=== PATIENT | female | born 1955 | race Caucasian/White ===

== ENCOUNTER 2018-08-28 13:12 | Observation (INO) | payer OTHER ==
[2018-08-28] MEDS ORDERED: SODIUM CHLORIDE 1,000 ML IV STA (14:45)
[2018-08-28] MEDS ORDERED: SODIUM CHLORIDE 500 ML IV STA (14:46)
[2018-08-28] MEDS ORDERED: ACETAMINOPHEN 325 MG TABLET (FP) PO ONE (16:15)
[2018-08-28] MEDS ORDERED: ONDANSETRON *ODT* 4 MG TABLET SL ONE (16:15)
[2018-08-28 16:19] LABS: BASO % 0.3 % (0-2.0); EOS % 0.1 % (0-4.5); HEMATOCRIT 34.7 % (32.4-45.2); HEMOGLOBIN 11.4 GM/dL (10.7-15.3); LYMPH % 5.9 % (8-40); MCH 32.2 pg (25.7-33.7); MCHC 32.9 g/dl (32.0-36.0); MEAN CELL VOLUME 97.8 fl (80-96); MEAN PLT VOLUME 10.4 fl (7.5-11.1); MONO % 3.3 % (3.8-10.2); NEUT % 90.4 % (42.8-82.8); PLATELET COUNT 236 K/MM3 (134-434); RBC 3.54 M/mm3 (3.60-5.2); WHITE BLOOD COUNT 12.3 K/mm3 (4.0-10.0)
[2018-08-28 16:52] LABS: ALBUMIN 3.7 g/dl (3.4-5.0); ALK PHOS 78 U/L (45-117); ANION GAP 10 MMOL/L (8-16); BILIRUBIN,TOTAL 0.4 mg/dL (0.2-1); BLOOD UREA NITROGEN 23 mg/dL (7-18); CALCIUM 9.7 mg/dL (8.5-10.1); CHLORIDE 108 mmol/L (98-107); CO2 24 mmol/L (21-32); CREATININE 1.4 mg/dL (0.55-1.3); GLUCOSE,RANDOM 100 mg/dL (74-106); POTASSIUM 4.1 mmol/L (3.5-5.1); SGOT/AST 22 U/L (15-37); SGPT/ALT 28 U/L (13-61); SODIUM 141 mmol/L (136-145); TOT PROT 7.6 g/dl (6.4-8.2)
[2018-08-28] MEDS ORDERED: ONDANSETRON *ODT* 4 MG TABLET ONE (17:24)
[2018-08-28] MEDS ORDERED: ACETAMINOPHEN 325 MG TABLET (FP) ONE (17:24)
[2018-08-28 18:00] LABS: URINE APPEARANCE CLEAR; URINE BILIRUBIN NEGATIVE (<2.0 mg/dL); URINE COLOR STRAW; URINE GLUCOSE (UA) NEGATIVE (NEGATIVE); URINE KETONE NEGATIVE (NEGATIVE); URINE LEUK ESTERASE NEGATIVE (NEGATIVE); URINE NITRITE NEGATIVE (NEGATIVE); URINE PROTEIN NEGATIVE (NEGATIVE); URINE UROBILINOGEN NEGATIVE mg/dL (0.2-1.0)
--- NOTE | 2018-08-28 18:01 | PDOC ---
Attending Attestation - Resident Resident Name: RashidaSaMadai - ED Attending Attestation I have performed the following: I have examined & evaluated the patient, The case was reviewed & discussed with the resident, I agree w/resident's findings & plan - HPI HPI: 08/28/18 17:55 62 YOF, with a significant past medical history of HTN, CAD s/p CABG, asthma, schizophrenia, who presents to the emergency department from a residential with, pleuritic chest pain, productive cough with green sputum, and belching. As per patient, she was walking in the park up stairs when her symptoms onset. She reports that due secondary to her coughing she defecated on herself, with episode of nonbloody loose stools today. She notes her symptoms are similar to previous asthma attacks. She denies recent fevers, chills, headache or dizziness. She denies recent nausea, vomit, diarrhea or constipation. She denies recent dysuria, frequency, urgency or hematuria. She denies recent chest pain. Allergies: Aspirin, medroxyprogesterone, penicillins Past surgical history: None reported. Social history: Nonsmoker. Denies EtOH use and recreational drug use. 08/28/18 17:56 - Physicial Exam PE: 08/28/18 17:55 NAD, AAO x3. well appearing, MMM, nl conjunctiva, anicteric; neck supple. lungs clear, nonreproducible chest tenderness. RRR, abdomen soft obese with LLQ TTP, no rebound or guarding. PRATER x4, no focal neuro deficits. No peripheral edema. normal color for ethnicity, [facility]. - Medical Decision Making 08/28/18 17:56 Minerva Gusman 62 YOF with HTN, CAD s/p CABG, asthma, schrizophrenia from residential. Presenting with Chest pain and belching, coughing, green sputum earlier today while walking outdoors up the stairs. +defecated on herself. admits to nonbloody diarrhea today.. Vital signs reviewed, wnl. Medical Plan: CBC, CMP, UA, urine cx, ECG, trops/card panel, CXR, CT a/p, V/Q scan as inpatient to r/o PE basic labs and lytes notable for leukocytosis of >12K, with possible infection/ inflammation. also elevated Cr, chronic vs acute, unclear as no prior medical records here. EKG normal sinus rhythm, no interval abnormalities, narrow QRS, ST and T wave segments and morphology normal. Nonspecific T wave abnormalities - unable to Perc out, with low Well's score for PE as no malignancy/ immobilization/surgery or hypoxia/tachypnea. D dimer elevated with age adjustment. will warrant r/o PE workup as she had episode of pleuritic chest pain and sob. As Cr elevated, will pursue CT a/p to r/o diverticulitis and intra abdominal infection as she has LLQ tenderness. given tylenol, IVF and zofran for symptoms, no acute events here. Dispo: Admit to medical service for AP, hydration, r/o ACS given risk factors.. Discussed results and management plan with pt and family member at bedside, agree with impression and plan 08/28/18 18:03 Heart Score/ECG Review - ECG Impressions Comment:: 08/28/18 18:01 EKG normal sinus rhythm, mildly bradycardic, no interval abnormalities, narrow QRS, ST and T wave segments and morphology normal. Nonspecific T wave abnormalities, low voltage waves.
--- NOTE | 2018-08-28 18:04 | PDOC ---
History of Present Illness - General Chief Complaint: Chest Pain Stated Complaint: CHEST PAIN, RESPIRATORY Time Seen by Provider: 08/28/18 13:36 History Source: Patient, Care Provider Exam Limitations: Other - History of Present Illness Initial Comments: 08/28/18 17:52 *pt is not a reliable historian. Majority of history obtained by Toya dave. Pt is a 62yo f with PMH of OHS, asthma, htn, schizophrenia, mental disability, PUD BIBA to ED with Toya dave for evaluation of chest pain, SOB, n/v. According to Marcela Scott, pt went down to the gardens nearby and to the gazebo and pt was feeling fine. On the way back up to the stairs, pt started complaining of substernal CP, non radiating associated with SOB. Pt stated it felt like 'an asthma attack'. Per Aruna, pt started belching and vomiting/ coughing greenish sputum up everytime she took a step up the stairs which was about 12 steps. After pt reached the top she had an episode of bowel incontinence. No blood in the vomitus or stool. Pt admits to chest pain which is sharp in the middle of her chest and does not radiate, worsened with inspiration. She also admits to headache, blurry vision, diffuse abdominal pain , SOB, neck pain, back pain, pain in the legs. Denies fevers, chills. -Per program aide group work, Pt is "dramatic" and will have several complaints; she has had extensive workup in the past which have been negative. She proceeded to show me the coffee and creamer pt had hidden in her purse and her closet. PCP: Dr. Bright PMH: see hpi Meds: hctz, losartin, plavix, atovastatin, lisinopril, advair, celexa PSH: CABG, tonsillectomy, appendectomy Allergies: PCN, ASA Social: denies Past History - Past Medical History Allergies/Adverse Reactions: Allergies Allergy/AdvReac Type Severity Reaction Status Date / Time aspirin Allergy Unknown Verified 08/28/18 13:18 medroxyprogesterone Allergy Unknown Verified 08/28/18 13:18 [From Provera Cp] Penicillins Allergy Unknown Verified 08/28/18 13:18 Home Medications: Ambulatory Orders Acetaminophen [Tylenol] 325 mg PO QID 08/28/18 Atorvastatin Ca [Lipitor] 80 mg PO DAILY 08/28/18 Citalopram Hydrobromide [Citalopram HBr] 75 mg PO DAILY 08/28/18 Hydrochlorothiazide [Hctz -] 12.5 mg PO DAILY 08/28/18 Hyoscyamine Sulfate 0.125 mg PO TID 08/28/18 Loratadine [Claritin] 10 mg PO DAILY 08/28/18 Vitamin D - 2,000 mg PO DAILY 08/28/18 Asthma: Yes COPD: No GI Disorders: Yes (peptic ulcer) Psychiatric Problems: Yes (schizophrenia, depression) Seizures: Yes (seizures) Other medical history: mild intellectual disability, myopia,POC - Immunization History Immunization Up to Date: Yes - Suicide/Smoking/Psychosocial Hx Smoking History: Never smoked Hx Alcohol Use: No Drug/Substance Use Hx: No Review of Systems - Review of Systems Able to Perform ROS?: Yes Is the patient limited [place] proficient: No Constitutional: Yes: Weakness. No: Chills, Fever HEENTM: Yes: Blurred Vision, Recent change in vision. No: Throat Pain Respiratory: Yes: Cough, Shortness of Breath, Productive cough (green sputum). No: Hemoptysis Cardiac (ROS): Yes: Chest Pain, Lightheadedness, Chest Tightness. No: Palpitations, Syncope ABD/GI: Yes: Diarrhea, Nausea, Vomiting, Abdominal cramping (diffuse). No: Constipated, Rectal Bleeding, Tarry Stools : Yes: Dysuria. No: Burning, Hematuria, Urgency Musculoskeletal: Yes: Back Pain, Neck Pain. No: Muscle Pain Neurological: Yes: Headache. No: Numbness, Tingling, Tremors Hematologic/Lymphatic: No: Blood Clots *Physical Exam - Vital Signs Last Vital Signs Temp Pulse Resp BP Pulse Ox 97.9 F 48 L 18 148/47 L 99 08/28/18 13:17 08/28/18 13:17 08/28/18 13:17 08/28/18 13:17 08/28/18 14:12 - Physical Exam Comments: 08/28/18 18:14 Pt sleeping in bed General Appearance: Yes: Nourished, Appropriately Dressed. No: Apparent Distress HEENT: positive: Pharynx Normal, Hearing Grossly Normal. negative: EOMI (PT would not track fingers stating that she could not do it. ), Pale Conjunctivae, Scleral Icterus (R), Scleral Icterus (L), Nasal Congestion, Rhinorrhea, Sinus Tenderness Neck: positive: Trachea midline, Supple. negative: Carotid bruit, Lymphadenopathy (R), Lymphadenopathy (L) Respiratory/Chest: positive: Lungs Clear, Other (At first pt wouldnt take deep breaths due to pain. ). negative: Crackles, Rales, Rhonchi, Stridor, Wheezing Cardiovascular: positive: Regular Rhythm, S1, S2, Bradycardia. negative: Edema , JVD, Murmur Vascular Pulses: Carotid (R): 2+, Carotid (L): 2+, Dorsalis-Pedis (R): 2+, Doralis-Pedis (L): 2+ Gastrointestinal/Abdominal: positive: Normal Bowel Sounds, Soft, Tenderness ( LLQ tenderness). negative: Distended, Guarding, Rebound Musculoskeletal: positive: Normal Inspection. negative: CVA Tenderness, CVA Tenderness (R), CVA Tenderness (L) Extremity: positive: Normal Capillary Refill. negative: Coldness, Cyanosis, Pedal Edema, Swelling, Calf Tenderness Integumentary: positive: Normal Color, Dry, Warm. negative: Pale, Cold, Clammy , Rash, Swelling Neurologic: positive: fitness sales associate II-XII NML intact, Fully Oriented, Alert, Normal Mood/ Affect, Normal Response, Motor Strength 5/5 Deep Tendon Reflexes: Ankle (L): 2+, Ankle (R): 2+, Knee (L): 2+, Knee (R): 2+ ED Treatment Course - LABORATORY CBC & Chemistry Diagram: 08/28/18 16:00 08/28/18 16:00 - ADDITIONAL ORDERS Additional order review: Laboratory Results 08/28/18 08/28/18 08/28/18 16:25 16:00 16:00 D-Dimer 804 H Sodium 141 Potassium 4.1 Chloride 108 H Carbon Dioxide 24 Anion Gap 10 BUN 23 H Creatinine 1.4 H Creat Clearance w eGFR 37.98 Random Glucose 100 Lactic Acid 1.0 Calcium 9.7 Total Bilirubin 0.4 AST 22 ALT 28 Alkaline Phosphatase 78 Total Protein 7.6 Albumin 3.7 08/28/18 16:00 RBC 3.54 L MCV 97.8 H MCHC 32.9 RDW 15.0 MPV 10.4 Neutrophils % 90.4 H Lymphocytes % 5.9 L Monocytes % 3.3 L Eosinophils % 0.1 Basophils % 0.3 - RADIOLOGY Radiology Studies Ordered: Category Date Time Status CHEST X-RAY PORTABLE* [RAD] Stat Radiology 08/28/18 14:27 Completed - Medications Given in the ED: ED Medications Discontinued Medications Generic Name Dose Route Start Last Admin Trade Name Freq PRN Reason Stop Dose Admin Acetaminophen 1,000 mg 08/28/18 16:15 08/28/18 17:31 Tylenol - PO 08/28/18 16:16 1,000 mg ONCE ONE Administration Sodium Chloride 1,000 mls @ 1,000 mls/hr 08/28/18 14:45 08/28/18 15:48 Normal Saline - IV 08/28/18 15:44 Not Given ASDIR STA Sodium Chloride 500 mls @ 1,000 mls/hr 08/28/18 14:46 08/28/18 15:47 Normal Saline - IV 08/28/18 15:14 1,000 mls/hr ASDIR STA Administration Ondansetron HCl 4 mg 08/28/18 16:15 08/28/18 17:32 Zofran Odt - SL 08/28/18 16:16 4 mg ONCE ONE Administration Medical Decision Making - Medical Decision Making 08/28/18 19:11 62 yo F with PMH of CABG, htn, asthma, schizophrenia BIBA after CP/SOB and coughing up with n/v after exertion. pleuritic chest pain. no hemoptysis Vitals: bradycardia, normotensive, afebrile PE: LLQ tenderness. chest clear DDx: considering chest pathology- ACS, PE, pna also considering abdominal pathology- colitis, diverticulitis. Will order ekg, basic labs, cardiac, d-dimer (PERC positive, low Well's score however still considering PE). Ordered UA and UC CXR: no acute pathology. EKG: sinus bradycardia, wide QRS, normal MD and QT. No SARAI or depressions. normal axis, Labs significant for; WBC 12.3 Cr 1.4 BUN 23 GFR 38 D-dimer 8[address] abdomen w/o contrast due to LLQ pain and episode of incontinence. 08/28/18 20:43 Called radiology for read of CT scan. Still waiting. 08/28/18 20:51 CTAP: intrahepatic lipomata, cholelithiasis, no diverticulitis or acute pathology Vitals: BP 137/71, HR 60s. Will admit tele/obs for ACS rule out and AP. *DC/Admit/Observation/Transfer Diagnosis at time of Disposition: Shortness of breath Chest pain Qualifiers: Chest pain type: pleurodynia Qualified Code(s): R07.81 - Pleurodynia - Discharge Dispostion Disposition: HOME Condition at time of disposition: Stable Decision to Admit order: Yes - Referrals Referrals: ON STAFF,NOT [Primary Care Provider] - - Patient Instructions - Post Discharge Activity
[2018-08-28 18:20] LABS: LIPASE 284 U/L (73-393)
--- NOTE | 2018-08-28 22:44 | PN ---
Teaching Attending Note Name of Resident: Roland Jara ATTENDING PHYSICIAN STATEMENT I saw and evaluated the patient. I reviewed the resident's note and discussed the case with the resident. I agree with the resident's findings and plan as documented. SUBJECTIVE: Patient is a 62 year old woman with a significant past medical history of HTN, CAD s/p CABG, asthma, schizophrenia, who presents to the ER from a senior living with, pleuritic chest pain, productive cough with green sputum, and belching. As per patient, she was walking in the park up stairs when her symptoms onset. She reports that due secondary to her coughing she defecated on herself, with episode of nonbloody loose stools today. She notes her symptoms are similar to previous asthma attacks. She denies recent fevers, chills, headache, dizziness and dysuria. OBJECTIVE: Alert Vital Signs Period Temp Pulse Resp BP Sys/Cleary Pulse Ox Last 24 Hr 97.9 F-98.5 F 45-67 13-18 145-155/44-82 98-100 HEENT: No Jaundice, eye redness or discharge, PERRLA, EOMI. Normocephalic, atraumatic. External ears are normal and hearing is grossly intact. No nasal discharge. Neck: Supple, nontender. No palpable adenopathy or thyromegaly. No JVD Chest: Good effort. Clear to auscultation and percussion. Heart: Regular. No S3, rub or murmur Abdomen: Not distended, soft, LLQ tenderness and no HSM. No rebound or guarding. Normoactive bowel sounds. Ext: Peripheral pulses intact. No leg edema. Skin: Warm and dry. No petechiae, rash or ecchymosis. Neuro: Alert. Oriented x3. CN 2-12 grossly intact. Sensation grossly intact in all four extremities and DTR are symmetric. Home Medications Medication Instructions Recorded Acetaminophen [Tylenol] 325 mg PO QID 08/28/18 Atorvastatin Ca [Lipitor] 80 mg PO DAILY 08/28/18 Citalopram Hydrobromide 75 mg PO DAILY 08/28/18 [Citalopram HBr] Hydrochlorothiazide [Hctz -] 12.5 mg PO DAILY 08/28/18 Hyoscyamine Sulfate 0.125 mg PO TID 08/28/18 Loratadine [Claritin] 10 mg PO DAILY 08/28/18 Vitamin D - 2,000 mg PO DAILY 08/28/18 Abnormal Lab Results 08/28/18 08/28/18 08/28/18 16:00 16:00 16:25 WBC 12.3 H RBC 3.54 L MCV 97.8 H Absolute Neuts (auto) 11.1 H Neutrophils % 90.4 H Lymphocytes % 5.9 L Monocytes % 3.3 L D-Dimer 804 H Chloride 108 H BUN 23 H Creatinine 1.4 H Creatine Kinase 275 H ASSESSMENT AND PLAN: 1. Chest pain - CXR shows cardiomegaly with a globular heart; no infiltrates. EKG shows bradycardia. Findings consistent with tracheobronchitis/atypical pneumonia. Will get urine legionella antigen, Lyme antibodies and ECHO to rule out pericarditis. Getting a V/Q scan. Treat with azithromycin and levaquin. Consult ID and cardiology. Monitor on Telemetry. Thusfar no evidence of ACS. 2. SANDRA - Etiology unclear. Will do basic nephrologic workup and rule out dehydration. Avoid nephrotoxic agents such as NSAIDS, aminoglycosides, contrast dyes and certain Alternative medicine products. 3. Obesity - Will provide patient all the necessary assistance , counseling and positive reinforcement to facilitate weight loss. Consult punch press operator helper. 4. DVT prophylaxis - Heparin 5000u sq tid. 5. Advance directives - Full code
[2018-08-29 03:29] VITALS: BMI 30.4
--- NOTE | 2018-08-29 03:55 | HP ---
CHIEF COMPLAINT: SOB, Chest pain PCP: Dr. Bright HISTORY OF PRESENT ILLNESS: Pt is poor historian, information obtained from ED documentation, aid Shaye, and from Flora (Tool Lathe Operator at [facility], pt's residence). Pt is a 62 y/o lady with a significant past medical history of asthma, CAD s/p CABG, schizophrenia, and HTN who presented to [facility] from [facility] ([place] [place]) with sharp chest pain, productive cough with green sputum, and vomiting. As per patient, she was walking in the park up stairs when she began to experience her symptoms. Per previous documentation, pt experienced an episode of bowel incontinence where she defecated on herself after walking up some stairs. She notes her symptoms are similar to previous asthma attacks. Per [facility], pt was recently admitted at [facility] for similar complaints of chest pain and shortness of breath. Full workup was done including a CTA Chest which was negative. Pt this past Tuesday presented to an Urgent Care once again for these similar symptoms and was ultimately referred to [facility] for further workup. Per Flora, pt's EKG and chest xray were all negative and pt was discharged home. Pt currently endorses pain on inspiration, LLQ abdominal pain which is tender to palpation, as well as pain in both of her calfs. She denies recent fevers, chills, headache, dizziness and dysuria. ER course was notable for: (1) WBC 12.5 (2) Bun/Cr 23/1.4 (3) D-Dimer 804 Recent Travel: Negative PAST MEDICAL HISTORY: HTN, CAD s/p CABG, asthma, schizophrenia PAST SURGICAL HISTORY: Social History: Smoking: Negative Alcohol: Negative Drugs: Negative Family History: Allergies aspirin Allergy (Unknown, Verified 08/28/18 13:18) medroxyprogesterone [From Provera Cp] Allergy (Unknown, Verified 08/28/18 13:18) Penicillins Allergy (Unknown, Verified 08/28/18 13:18) HOME MEDICATIONS: Home Medications Medication Instructions Recorded Acetaminophen [Tylenol] 325 mg PO QID 08/28/18 Atorvastatin Ca [Lipitor] 80 mg PO DAILY 08/28/18 Citalopram Hydrobromide 75 mg PO DAILY 08/28/18 [Citalopram HBr] Hydrochlorothiazide [Hctz -] 12.5 mg PO DAILY 08/28/18 Hyoscyamine Sulfate 0.125 mg PO TID 08/28/18 Loratadine [Claritin] 10 mg PO DAILY 08/28/18 Vitamin D - 2,000 mg PO DAILY 08/28/18 REVIEW OF SYSTEMS CONSTITUTIONAL: Absent: fever, chills, diaphoresis, generalized weakness, malaise, loss of appetite, weight change HEENT: Absent: rhinorrhea, nasal congestion, throat pain, throat swelling, difficulty swallowing, mouth swelling, ear pain, eye pain, visual changes CARDIOVASCULAR: PRESENT: chest pain, irregular heart rate RESPIRATORY: PRESENT: shortness of breath, dyspnea with exertion GASTROINTESTINAL: PRESENT: LLQ Tenderness, vomiting, diarrhea GENITOURINARY: Absent: dysuria, frequency, urgency, hesitancy, hematuria, flank pain, genital pain MUSCULOSKELETAL: Absent: myalgia, arthralgia, joint swelling, back pain, neck pain SKIN: Absent: rash, itching, pallor HEMATOLOGIC/IMMUNOLOGIC: Absent: easy bleeding, easy bruising, lymphadenopathy, frequent infections ENDOCRINE: Absent: unexplained weight gain, unexplained weight loss, heat intolerance, cold intolerance NEUROLOGIC: Absent: headache, focal weakness or paresthesias, dizziness, unsteady gait, seizure, mental status changes, bladder or bowel incontinence PSYCHIATRIC: Absent: anxiety, depression, suicidal or homicidal ideation, hallucinations. PHYSICAL EXAMINATION Vital Signs - 24 hr 08/28/18 08/28/18 08/28/18 13:17 14:12 16:15 Temperature 97.9 F 98.5 F Pulse Rate 48 L Pulse Rate [ 45 L Apical] Respiratory 18 13 Rate Blood Pressure 148/47 L Blood Pressure 155/53 L [Right Arm] O2 Sat by Pulse 100 99 99 Oximetry (%) 08/28/18 08/28/18 08/28/18 17:45 19:54 21:09 Temperature Pulse Rate Pulse Rate [ 54 L 67 Apical] Respiratory 16 18 Rate Blood Pressure Blood Pressure 150/82 145/44 L [Right Arm] O2 Sat by Pulse 99 99 98 Oximetry (%) 08/29/18 00:47 Temperature Pulse Rate Pulse Rate [ 76 Apical] Respiratory 17 Rate Blood Pressure Blood Pressure 142/72 [Right Arm] O2 Sat by Pulse 98 Oximetry (%) GENERAL: Awake, alert, Oriented. No facial grimacing, NAD. HEAD: NC/AT EYES: PERRLA EARS, NOSE, THROAT: MMM NECK: Supple, No jvd LUNGS: Pain on inspiration, Auscultation limited. HEART: Bradycardia, Regular rhythm ABDOMEN: NT, No HSM, BS + all 4 quadrants. LLQ tenderness MUSCULOSKELETAL: Full ROM throughout. UPPER EXTREMITIES: No CCE LOWER EXTREMITIES: No CCE, - jaylen's sign b/l. Calfs tender to squeeze NEUROLOGICAL: CN 2-12 inact, no Neuro Deficits appreciated PSYCHIATRIC: Mentally handicapped. At baseline. SKIN: Warm, dry, normal turgor, no rashes or lesions noted, normal capillary refill. Laboratory Results - last 24 hr 08/28/18 08/28/18 08/28/18 16:00 16:00 16:00 WBC 12.3 H RBC 3.54 L Hgb 11.4 Hct 34.7 MCV 97.8 H MCH 32.2 MCHC 32.9 RDW 15.0 Plt Count 236 MPV 10.4 Absolute Neuts (auto) 11.1 H Neutrophils % 90.4 H Lymphocytes % 5.9 L Monocytes % 3.3 L Eosinophils % 0.1 Basophils % 0.3 Nucleated RBC % 0 D-Dimer Sodium 141 Potassium 4.1 Chloride 108 H Carbon Dioxide 24 Anion Gap 10 BUN 23 H Creatinine 1.4 H Creat Clearance w eGFR 37.98 Random Glucose 100 Lactic Acid 1.0 Calcium 9.7 Total Bilirubin 0.4 AST 22 ALT 28 Alkaline Phosphatase 78 Creatine Kinase 275 H Creatine Kinase Index 0.8 CK-MB (CK-2) 2.3 Troponin I 0.02 Total Protein 7.6 Albumin 3.7 Lipase 284 Urine Color Urine Appearance Urine pH Ur Specific [place] Urine Protein Urine Glucose (UA) Urine Ketones Urine Blood Urine Nitrite Urine Bilirubin Urine Urobilinogen Ur Leukocyte Esterase 08/28/18 08/28/18 16:25 17:30 WBC RBC Hgb Hct MCV MCH MCHC RDW Plt Count MPV Absolute Neuts (auto) Neutrophils % Lymphocytes % Monocytes % Eosinophils % Basophils % Nucleated RBC % D-Dimer 804 H Sodium Potassium Chloride Carbon Dioxide Anion Gap BUN Creatinine Creat Clearance w eGFR Random Glucose Lactic Acid Calcium Total Bilirubin AST ALT Alkaline Phosphatase Creatine Kinase Creatine Kinase Index CK-MB (CK-2) Troponin I Total Protein Albumin Lipase Urine Color Straw Urine Appearance Clear Urine pH 6.0 Ur Specific [place] 1.009 Urine Protein Negative Urine Glucose (UA) Negative Urine Ketones Negative Urine Blood Negative Urine Nitrite Negative Urine Bilirubin Negative Urine Urobilinogen Negative Ur Leukocyte Esterase Negative ASSESSMENT/PLAN: 62 y/o lady with a significant past medical history of asthma, CAD s/p CABG, schizophrenia, and HTN who presented to [facility] from [facility] ([place], [place], [facility]) with sharp chest pain, productive cough with green sputum, and vomiting. # Chest Pain -Troponin in ED 0.02, repeat Troponin in am - D-Dimer 804, V/Q Scan in AM, EKG--> normal sinus rhythm, no interval abnormalities, narrow QRS, ST and T wave segments and morphology normal. Nonspecific T wave abnormalities - Echocardiogram in AM to assess for possible pericarditis - Cardiology Consult -Monitor on [place] Floor Leukocytosis 2/2 to Atypical Pneumonia/ Lyme disease/ Legionella? -WBC 12.5, Bradycardia -Chest Xray shows cardiomegaly, no infiltrates -Levaquin/Azithromycin - Urine Legionella Antigen - Lyme AB's -ID Consult SANDRA -Bun/Cr 23/1.4 -etiology of SANDRA unclear. 2/2 hypovolemia? -Avoid NSAIDS, aminoglycosides, and other nephrotoxic agents FEN No Fluids Monitor electroyltes Regular Diet DVT ppx: Heparin 5,000 TID Dispo: Continue to monitor on floor Visit type - Emergency Visit Emergency Visit: Yes ED Registration Date: 08/28/18 Care time: The patient presented to the Emergency Department on the above date and was hospitalized for further evaluation of their emergent condition. - New Patient This patient is new to me today: Yes Date on this admission: 08/29/18 - Critical Care Critical Care patient: No
[2018-08-29] MEDS: HEPARIN NA (PORCINE) 5,000 UNITS/ML 1ML VIAL SQ SCH ×3 (06:34→21:30)
[2018-08-29 07:59] LABS: BASO % 0.6 % (0-2.0); EOS % 0.7 % (0-4.5); HEMATOCRIT 32.7 % (32.4-45.2); HEMOGLOBIN 10.5 GM/dL (10.7-15.3); LYMPH % 22.5 % (8-40); MCH 31.8 pg (25.7-33.7); MCHC 32.1 g/dl (32.0-36.0); MEAN PLT VOLUME 10.5 fl (7.5-11.1); MONO % 11.9 % (3.8-10.2); NEUT % 64.3 % (42.8-82.8); PLATELET COUNT 212 K/MM3 (134-434); RDW 15.2 % (11.6-15.6); WHITE BLOOD COUNT 6.6 K/mm3 (4.0-10.0)
[2018-08-29 08:20] LABS: PROTHROMBIN TIME (PATIENT) 11.8 SEC (9.7-13.0)
[2018-08-29 08:23] LABS: ACTIVATED PTT 24.7 SECONDS (25.2-36.5)
[2018-08-29 08:38] LABS: ANION GAP 9 MMOL/L (8-16); BLOOD UREA NITROGEN 22 mg/dL (7-18); CHLORIDE 114 mmol/L (98-107); CO2 23 mmol/L (21-32); CREATININE 1.4 mg/dL (0.55-1.3); GLUCOSE,RANDOM 67 mg/dL (74-106); MAGNESIUM 2.3 mg/dL (1.8-2.4); PHOSPHOROUS 4.4 mg/dL (2.5-4.9); POTASSIUM 4.2 mmol/L (3.5-5.1); SODIUM 145 mmol/L (136-145)
[2018-08-29] MEDS ORDERED: AZITHROMYCIN IVPB 500 MG in DEXTROSE 5%-WATER - 250 ML IVPB SCH (10:00)
[2018-08-29] MEDS ORDERED: AZITHROMYCIN IVPB 500 MG/250 ML D5W PRE-DOCKED IVPB SCH (10:00)
--- NOTE | 2018-08-29 10:44 | EKG ---
Test Reason : Blood Pressure : / mmHG Vent. Rate : 057 BPM Atrial Rate : 058 BPM P-R Int : 152 ms QRS Dur : 084 ms QT Int : 484 ms P-R-T Axes : 072 070 110 degrees QTc Int : 471 ms SINUS BRADYCARDIA WITH SINUS ARRHYTHMIA NONSPECIFIC ST AND T WAVE ABNORMALITY ABNORMAL ECG NO PREVIOUS ECGS AVAILABLE Confirmed by Abhijeet Wilson MD ([id number]) on 08/29/2018 10:44:25 AM Referred By: Confirmed By:Abhijeet Wilson MD
--- NOTE | 2018-08-29 13:21 | PN ---
Physical Exam: SUBJECTIVE: Patient seen and examined at the bedside. still having chest pain but better, no shortness of breath. OBJECTIVE: ekg sb, with sinus arrythmia athletic monitor sb 77s Vital Signs Period Temp Pulse Resp BP Sys/Cleary Pulse Ox Last 24 Hr 97.4 F-98.5 F 45-76 13-20 113-158/44-82 96-99 GENERAL: The patient is awake, alert, poor historian HEAD: Normal with no signs of trauma. EYES: PERRL, extraocular movements intact, sclera anicteric, conjunctiva clear. No ptosis. ENT: Ears normal, nares patent, oropharynx clear without exudates, moist mucous membranes. NECK: Trachea midline, full range of motion, supple. LUNGS: Breath sounds equal, clear to auscultation bilaterally HEART: Regular rate and rhythm ABDOMEN: Soft, nontender, nondistended, normoactive bowel sounds, no guarding, no rebound, no hepatosplenomegaly, no masses. EXTREMITIES: no edema. NEUROLOGICAL: Normal speech, gait not observed. PSYCH: hx if schizophrenia SKIN: Warm, dry, normal turgor, no rashes or lesions noted Laboratory Results - last 24 hr 08/28/18 08/28/18 08/28/18 16:00 16:00 16:00 WBC 12.3 H RBC 3.54 L Hgb 11.4 Hct 34.7 MCV 97.8 H MCH 32.2 MCHC 32.9 RDW 15.0 Plt Count 236 MPV 10.4 Absolute Neuts (auto) 11.1 H Neutrophils % 90.4 H Lymphocytes % 5.9 L Monocytes % 3.3 L Eosinophils % 0.1 Basophils % 0.3 Nucleated RBC % 0 PT with INR INR PTT (Actin FS) D-Dimer Sodium 141 Potassium 4.1 Chloride 108 H Carbon Dioxide 24 Anion Gap 10 BUN 23 H Creatinine 1.4 H Creat Clearance w eGFR 37.98 Random Glucose 100 Lactic Acid 1.0 Calcium 9.7 Phosphorus Magnesium Total Bilirubin 0.4 AST 22 ALT 28 Alkaline Phosphatase 78 Creatine Kinase 275 H Creatine Kinase Index 0.8 CK-MB (CK-2) 2.3 Troponin I 0.02 Total Protein 7.6 Albumin 3.7 Lipase 284 Urine Color Urine Appearance Urine pH Ur Specific [place] Urine Protein Urine Glucose (UA) Urine Ketones Urine Blood Urine Nitrite Urine Bilirubin Urine Urobilinogen Ur Leukocyte Esterase 10/01/18 10/01/18 10/02/18 16:25 17:30 07:05 WBC 6.6 RBC 3.30 L Hgb 10.5 L Hct 32.7 MCV 99.0 H MCH 31.8 MCHC 32.1 RDW 15.2 Plt Count 212 MPV 10.5 Absolute Neuts (auto) 4.2 Neutrophils % 64.3 D Lymphocytes % 22.5 D Monocytes % 11.9 H D Eosinophils % 0.7 D Basophils % 0.6 Nucleated RBC % 0 PT with INR INR PTT (Actin FS) D-Dimer 804 H Sodium Potassium Chloride Carbon Dioxide Anion Gap BUN Creatinine Creat Clearance w eGFR Random Glucose Lactic Acid Calcium Phosphorus Magnesium Total Bilirubin AST ALT Alkaline Phosphatase Creatine Kinase Creatine Kinase Index CK-MB (CK-2) Troponin I Total Protein Albumin Lipase Urine Color Straw Urine Appearance Clear Urine pH 6.0 Ur Specific [place] 1.009 Urine Protein Negative Urine Glucose (UA) Negative Urine Ketones Negative Urine Blood Negative Urine Nitrite Negative Urine Bilirubin Negative Urine Urobilinogen Negative Ur Leukocyte Esterase Negative 08/29/18 08/29/18 07:05 07:05 WBC RBC Hgb Hct MCV MCH MCHC RDW Plt Count MPV Absolute Neuts (auto) Neutrophils % Lymphocytes % Monocytes % Eosinophils % Basophils % Nucleated RBC % PT with INR 11.80 INR 1.00 PTT (Actin FS) 24.7 L D-Dimer Sodium 145 Potassium 4.2 Chloride 114 H Carbon Dioxide 23 Anion Gap 9 BUN 22 H Creatinine 1.4 H Creat Clearance w eGFR 37.98 Random Glucose 67 L Lactic Acid Calcium 9.0 Phosphorus 4.4 Magnesium 2.3 Total Bilirubin AST ALT Alkaline Phosphatase Creatine Kinase Creatine Kinase Index CK-MB (CK-2) Troponin I 0.03 Total Protein Albumin Lipase Urine Color Urine Appearance Urine pH Ur Specific [place] Urine Protein Urine Glucose (UA) Urine Ketones Urine Blood Urine Nitrite Urine Bilirubin Urine Urobilinogen Ur Leukocyte Esterase Active Medications Generic Name Dose Route Start Last Admin Trade Name Freq PRN Reason Stop Dose Admin Azithromycin 500 mg 08/29/18 10:00 08/29/18 11:28 Zithromax 500mg Ivpb (Pre-Docked) IVPB 500 mg DAILY OTONIEL Administration Heparin Sodium (Porcine) 5,000 unit 08/29/18 06:00 08/29/18 06:34 Heparin - SQ 5,000 unit TID OTONIEL Administration ASSESSMENT/PLAN: Patient is a 62 year old female witha significant past medical history of asthma , CAD s/p CABG, schizophrenia, and hypertension. She present to the ER from [email or web address] ([place], [place], halfway for mentally challenged individuals) with sharp chest pain, productive cough with green sputum, and vomiting. Card: Chest pain. resolved. no events on tele, troponins negative. denies chest pain on exam and appears comfortable. currently asymptomatic. Seen by cardiology. Patient can follow up outpatient. echo with normal LV EF 60%. CAD: on lipitor Pulm Productive cough, with green sputum. Seen by ID. will monitor off antibiotics. No further coughing episodes. WBC wnl. Elevated d dimer. Reported to have been worked up 1 week ago with a negative CTA. Will doppler lower extremities. No chest pain, not tachycardic, not short of breath. Pulmonary following. GI: vomiting, resolved. tolerating diet. denies nausea/vomiting. ID: Leukocytosis, resoled. monitor off antibiotics. Renal: SANDRA, bun creat 23/1.4. will gently hydrate overnight and repeat. fen gentle hydration repeat labs in am low salt diet full code Visit type - Emergency Visit Emergency Visit: Yes ED Registration Date: 08/28/18 Care time: The patient presented to the Emergency Department on the above date and was hospitalized for further evaluation of their emergent condition. - New Patient This patient is new to me today: Yes Date on this admission: 08/29/18 - Critical Care Critical Care patient: No - Discharge Referral Referred to [facility] Med [facility].: No
--- NOTE | 2018-08-29 14:09 | PN ---
Progress Note (short form) - Note Progress Note: PULMONARY CONSULTATION DICTATED 08/29/18 IMP CHEST PAIN SYNDROME ASTHMA ASHD S/P CABG ELEVATED D-DIMER NON-SPECIFIC PT HAD NEGATIVE W/U FOR PE ONE WK AGO SCHIZOPHRENIA SANDRA PLAN INHALED BRONCHODILATORS O2 ABX DUPLEX LOWER EXTREMITIES IVF ESR ANALGESICS DR OCASIO Problem List - Problems (1) Asthma Code(s): J45.909 - UNSPECIFIED ASTHMA, UNCOMPLICATED (2) Chest pain Code(s): R07.9 - CHEST PAIN, UNSPECIFIED Qualifiers: Chest pain type: pleurodynia Qualified Code(s): R07.81 - Pleurodynia (3) Shortness of breath Code(s): R06.02 - SHORTNESS OF BREATH (4) ASHD (arteriosclerotic heart disease) Code(s): I25.10 - ATHSCL HEART DISEASE OF [place] CORONARY ARTERY W/O ANG PCTRS (5) Schizo affective schizophrenia Code(s): F25.0 - SCHIZOAFFECTIVE DISORDER, BIPOLAR TYPE (6) D-dimer, elevated Code(s): R79.89 - OTHER SPECIFIED ABNORMAL FINDINGS OF BLOOD CHEMISTRY
--- NOTE | 2018-08-29 14:13 | ECHO ---
Name: ROSANNE KAUFMAN Exam:Adult Echocardiogram Study Date: 08/29/2018 08:38 AM Age: 62 yrs Reason For Study: R/O PERICARDITIS Height: 66 in Weight: 200 lb BSA: 2.0 m2 MMode/2D Measurements & Calculations IVSd: 0.92 cm Ao root diam: 2.2 cm LVIDd: 4.5 cm LA dimension: 4.0 cm LVIDs: 2.9 cm LVPWd: 0.82 cm EDV(Teich): 93.4 ml LAV (MOD-bp): 67.9 ml ESV(Teich): 32.2 ml Doppler Measurements & Calculations MV E max aaron: 114.0 cm/sec LV V1 max P.2 mmHg MV A max aaron: 77.6 cm/sec LV V1 max: 124.2 cm/sec MV E/A: 1.5 MV dec time: 0.20 sec MR max aaron: 200.9 cm/sec TR max aaron: 279.6 cm/sec MR max P.1 mmHg TR max P.4 mmHg Med Peak E' Aaron: 6.2 cm/sec PI Vmax: 130.3 cm/sec Med E/e': 18.4 Lat Peak E' Aaron: 11.5 cm/sec Lat E/e': 9.9 Procedure A complete two-dimensional transthoracic echocardiogram was performed (2D, M-mode, Doppler and color flow Doppler). Left Ventricle The left ventricular size, thickness and function are normal. Ejection Fraction = 60%. The transmitra l spectral Doppler flow pattern is suggestive of impaired LV relaxation. Right Ventricle The right ventricle is normal in size and function. Atria Normal left and right atrial size and function. Mitral Valve The mitral valve is normal in structure and function. There is trace mitral regurgitation. Tricuspid Valve The tricuspid valve is normal in structure and function. There is mild to moderate tricuspid regurgit ation. Right ventricular systolic pressure is 31 mmhg. Aortic Valve There is mild aortic valve thickening. No aortic regurgitation is present. Pulmonic Valve The pulmonic valve is not well seen, but is grossly normal. Trace pulmonic valvular regurgitation. Great Vessels The aortic root is normal size. Pericardium/Pleura There is no pericardial effusion. There is no pleural effusion. Interpretation Summary The left ventricular size, thickness and function are normal Ejection Fraction = 60%. There is trace mitral regurgitation. There is mild to moderate tricuspid regurgitation. Right ventricular systolic pressure is 31 mmhg. There is mild aortic valve thickening. Trace pulmonic valvular regurgitation. MD Abhijeet Wilson 08/29/2018 02:13 PM
--- NOTE | 2018-08-29 14:19 | CON.CARD ---
Consult Consult Specialty:: cardiology Reason for Consultation:: SOB - History of Present Illness Chief Complaint: Pt A&O x3; asymptomatic presently History of Present Illness: pt is not a reliable historian. Majority of history obtained by Gabby dave initially. Pt is a 62yo f with PMH of OHS, asthma, htn, schizophrenia, mental disability, PUD BIBA to ED with Gabby dave for evaluation of chest pain, SOB, n/v. According to Marcela Scott, pt went down to the gardens nearby and to the gazebo and pt was feeling fine. On the way back up to the stairs, pt started complaining of substernal CP, non radiating associated with SOB. Pt stated it felt like 'an asthma attack'. Per Aruna, pt started belching and vomiting/ coughing greenish sputum up everytime she took a step up the stairs which was about 12 steps. After pt reached the top she had an episode of bowel incontinence. No blood in the vomitus or stool. Pt admits to chest pain which is sharp in the middle of her chest and does not radiate, worsened with inspiration. She also admits to headache, blurry vision, diffuse abdominal pain , SOB, neck pain, back pain, pain in the legs. Denies fevers, chills. -Per group fitness assistant department head, Pt is "dramatic" and will have several complaints; she has had extensive workup in the past which have been negative. She then showed the ER interviewer coffee and creamer pt had hidden in her purse and her closet. - History Source History Provided By: Patient, Medical Record, Caregiver Limitations to Obtaining History: Poor Historian - Past Medical History Cardio/Vascular: Yes: HTN Pulmonary: Yes: Asthma Reproductive: Yes: Postmenopausal ...: No Psych: Yes: Schizophrenia - Alcohol/Substance Use Hx Alcohol Use: No - Smoking History Smoking history: Never smoked Have you smoked in the past 12 months: No Home Medications - Allergies Allergies/Adverse Reactions: Allergies Allergy/AdvReac Type Severity Reaction Status Date / Time aspirin Allergy Unknown Verified 08/28/18 13:18 medroxyprogesterone Allergy Unknown Verified 08/28/18 13:18 [From Provera Cp] Penicillins Allergy Unknown Verified 08/28/18 13:18 - Home Medications Home Medications: Ambulatory Orders Acetaminophen [Tylenol] 325 mg PO QID 08/28/18 Atorvastatin Ca [Lipitor] 80 mg PO DAILY 08/28/18 Citalopram Hydrobromide [Citalopram HBr] 75 mg PO DAILY 08/28/18 Hydrochlorothiazide [Hctz -] 12.5 mg PO DAILY 08/28/18 Hyoscyamine Sulfate 0.125 mg PO TID 08/28/18 Loratadine [Claritin] 10 mg PO DAILY 08/28/18 Vitamin D - 2,000 mg PO DAILY 08/28/18 Family Disease History - Family Disease History Family History: Denies Review of Systems - Review of Systems Constitutional: reports: Weakness Eyes: reports: No Symptoms HENT: reports: No Symptoms Neck: reports: No Symptoms Cardiovascular: reports: No Symptoms Respiratory: reports: No Symptoms Gastrointestinal: reports: Bloating, Nausea, Vomiting Genitourinary: reports: No Symptoms Breasts: reports: No Symptoms Reported Musculoskeletal: reports: Muscle Weakness Integumentary: reports: No Symptoms Neurological: reports: Weakness Endocrine: reports: No Symptoms Hematology/Lymphatic: reports: No Symptoms Psychiatric: reports: Other - Risk Factors Known Risk Factors: Yes: Age, Hypertension, Physical Inactivity, Other ( schizophrenia) Vital Signs: Vital Signs Temperature 98 F 08/29/18 09:00 Pulse Rate 52 L 08/29/18 09:00 Respiratory Rate 18 08/29/18 09:00 Blood Pressure 146/66 08/29/18 09:00 O2 Sat by Pulse Oximetry (%) 96 08/29/18 09:00 Constitutional: Yes: Calm Eyes: Yes: WNL HENT: Yes: WNL Neck: Yes: WNL Respiratory: Yes: WNL Gastrointestinal: No: Tenderness Renal/: No: Anuria Cardiovascular: Yes: WNL JVD: No Carotid Bruit: No PMI: Non-Displaced Heart Sounds: Yes: S1, S2 Murmur: Yes: Systolic Murmur, Grade 2 (RSB-->apex) Musculoskeletal: Yes: Muscle Weakness Edema: No Peripheral Pulses WNL: Yes Integumentary: Yes: WNL Neurological: Yes: Alert, Oriented Psychiatric: Yes: Alert, Oriented, Other - Other Data Labs, Other Data: CBC, BMP 08/29/18 07:05 08/29/18 07:05 INR, PTT INR 1.00 (0.83-1.09) 08/29/18 07:05 Troponin, BNP 08/28/18 08/29/18 16:00 07:05 Troponin I 0.02 0.03 Troponin, BNP 08/28/18 08/29/18 16:00 07:05 Troponin I 0.02 0.03 Abnormal Lab Results 08/29/18 08/29/18 08/29/18 07:05 07:05 07:05 RBC 3.30 L Hgb 10.5 L MCV 99.0 H Monocytes % 11.9 H D ESR PTT (Actin FS) 24.7 L Chloride 114 H BUN 22 H Creatinine 1.4 H Random Glucose 67 L 08/29/18 15:43 RBC Hgb MCV Monocytes % ESR 101 H PTT (Actin FS) Chloride BUN Creatinine Random Glucose Ejection Fraction %: LVEF > or = 40 % Imaging - Results Ultrasound: Report Reviewed (ECHO: normal LVEF and LV size; mild-moderate TR) EKG: Image Reviewed (sinus bradycardia; sinus arrhythmia, nonspecific STT changes) Problem List - Problems (1) Atypical chest pain Assessment/Plan: TNI negative x 2. Discomfort was primarily abdominal. Pt says she had a stress MIBI (her third in several years) a few weeks ago at [facility]; it was reportedly negative. She had a coronary angiogram years ago, after the 1st stress MIBI. Denies hx PCI , either angioplasty or coronary artery stent. EKG: sinus michael with sinus arrhythmia; nonspecific STT changes; no arrhythmias or significant pauses on telemetry. ECHO: normal LVEF. It would be helpful to obtain records of recent cardiac workup. Code(s): R07.89 - OTHER CHEST PAIN (2) Schizo affective schizophrenia Code(s): F25.0 - SCHIZOAFFECTIVE DISORDER, BIPOLAR TYPE (3) Shortness of breath Code(s): R06.02 - SHORTNESS OF BREATH (4) Renal dysfunction Assessment/Plan: Hydration; f/u BUN/Cr, Is and Os. Code(s): N28.9 - DISORDER OF KIDNEY AND URETER, UNSPECIFIED (5) Leukocytosis Assessment/Plan: on antibiotics Code(s): D72.829 - ELEVATED WHITE BLOOD CELL COUNT, UNSPECIFIED
--- NOTE | 2018-08-29 15:14 | CONS ---
PULMONARY CONSULTATION DATE OF CONSULTATION: 08/29/2018 REFERRING PHYSICIAN: Amy Crook NP History is obtained from the chart. The patient is a poor historian. The patient is a 62-year-old white female, resident of a half-way and past medical history of asthma, ASHD status post CABG, schizophrenia, hypertension, admitted to [facility] from [facility] in the [place] for mentally challenged individuals, with complaint of sharp chest pain, cough productive of green sputum, and vomiting. Apparently, as per aide and according to the patient, she was walking in the park, stated began to experience her symptoms. Her symptoms apparently were similar to previous asthma attacks. Of note is patient was recently hospitalized at [facility] secondary to chest pain and shortness of breath about 1 week ago. At that time, CTA of the chest was performed which was negative, and apparently, the patient has also had a full workup done which was negative. This past Tuesday prior to admission, patient went to an urgent care again with similar symptoms and referred to [facility] for further workup which was negative. Apparently, EKGs and chest x- rays as well as CTA were negative. Patient complains of generalized pain throughout. Denies any nausea, vomiting, or diaphoresis at this time. Denies any shortness of breath at this time. PAST MEDICAL HISTORY: Again includes schizophrenia, hypertension, asthma, ASHD status post CABG. REVIEW OF SYSTEMS: Difficult to obtain, but patient denies any headaches, visual disturbance. Denies any shortness of breath. No cough at this time. No chest pain. No palpitations. No nausea. No vomiting at this time. CURRENT MEDICATIONS: Include Zithromax and heparin. PHYSICAL EXAMINATION: General: The patient is a well-developed, well-nourished female, awake, alert, currently in no acute distress. Vital Signs: She is afebrile. Blood pressure is 146/66, respiratory rate is 18 , and O2 saturation is 96 to 98 on room air. HEENT: Normocephalic, atraumatic. Heart: Regular. S1, S2. Chest: Clear. Abdomen: Soft. Bowel sounds are positive. Extremities: No cyanosis or edema. LABORATORY DATA: D-dimer 804. WBC is 6.6, hemoglobin 10.5, hematocrit 32.7 with a platelet count of 212,000. BUN 22, creatinine 1.4. Chest x-ray reveals cardiomegaly. No acute infiltrates or effusions. Abdominal and pelvic CT: Intrahepatic lipomata, cholelithiasis. No evidence of diverticulitis or acute obstruction. IMPRESSION: 1. Cough, chest congestion, resolved; possible bronchitis, possible asthma. 2. Elevated D-dimer, nonspecific. Patient recently underwent a full workup including a CTA, EKG which was negative. A full workup for similar symptoms about a week ago, which was negative for pulmonary embolism. 3. Atherosclerotic heart disease status post coronary artery bypass graft. 4. Schizophrenia. PLAN: Inhaled bronchodilators, supplemental O2, antibiotics, continue Zithromax. Obtain duplex of lower extremities. DVT prophylaxis. ALEX OCASIO M.D. NIVIA/[id number] MTDD
[2018-08-29] MEDS: SODIUM CHLORIDE 1,000 ML IV SCH (17:13)
--- NOTE | 2018-08-29 17:31 | CON.ID ---
Consult Consult Specialty:: infectious disease Reason for Consultation:: leukocytosis - History of Present Illness Chief Complaint: sob, nausea vomiting History of Present Illness: she was walking in the park next to the hospital, back up from the lookout area and she became sob- she had chest pain, nausea and vomiting and fecal incontinence no fevers she came to ed cxray normal ct abd/pelvis- normal ua negative wbc 12.5 no cough just ate, nausea vomiting and sob have resolved - History Source History Provided By: Patient, Medical Record Limitations to Obtaining History: No Limitations - Past Medical History Cardio/Vascular: Yes: CAD, HTN Pulmonary: Yes: Asthma ...: No - Past Surgical History Past Surgical History: Yes: Appendectomy, CABG, Tonsillectomy - Alcohol/Substance Use Hx Alcohol Use: No - Smoking History Smoking history: Never smoked Have you smoked in the past 12 months: No - Social History Usual Living Arrangement: Assisted Living ADL: Support Services History of Recent Travel: No Home Medications - Allergies Allergies/Adverse Reactions: Allergies Allergy/AdvReac Type Severity Reaction Status Date / Time aspirin Allergy Unknown Verified 08/28/18 13:18 medroxyprogesterone Allergy Unknown Verified 08/28/18 13:18 [From Provera Cp] Penicillins Allergy Unknown Verified 08/28/18 13:18 - Home Medications Home Medications: Ambulatory Orders Acetaminophen [Tylenol] 325 mg PO QID 08/28/18 Atorvastatin Ca [Lipitor] 80 mg PO DAILY 08/28/18 Citalopram Hydrobromide [Citalopram HBr] 75 mg PO DAILY 08/28/18 Hydrochlorothiazide [Hctz -] 12.5 mg PO DAILY 08/28/18 Hyoscyamine Sulfate 0.125 mg PO TID 08/28/18 Loratadine [Claritin] 10 mg PO DAILY 08/28/18 Vitamin D - 2,000 mg PO DAILY 08/28/18 Family Disease History - Family Disease History Family History: Unable to Obtain Review of Systems - Review of Systems Constitutional: reports: No Symptoms Eyes: reports: No Symptoms HENT: reports: No Symptoms Neck: reports: No Symptoms Cardiovascular: reports: Chest Pain (resolved) Respiratory: reports: Cough (resolved) Gastrointestinal: reports: Nausea, Vomiting (resolved) Genitourinary: reports: No Symptoms Physical Exam Vital Signs: Vital Signs Temperature 98.2 F 08/29/18 14:00 Pulse Rate 92 H 08/29/18 14:00 Respiratory Rate 18 08/29/18 14:00 Blood Pressure 116/65 08/29/18 14:00 O2 Sat by Pulse Oximetry (%) 96 08/29/18 09:00 Constitutional: Yes: Well Nourished, No Distress Eyes: Yes: Conjunctiva Clear HENT: Yes: Atraumatic, Normocephalic Neck: Yes: Supple Cardiovascular: Yes: Regular Rate and Rhythm Respiratory: Yes: Regular, CTA Bilaterally Gastrointestinal: Yes: Normal Bowel Sounds, Soft ...Rectal Exam: Yes: Deferred Edema: No Psychiatric: Yes: Alert Labs: CBC, BMP 08/29/18 07:05 08/29/18 07:05 Imaging - Results Chest X-ray: Report Reviewed Cat Scan: Report Reviewed Problem List - Problems (1) Leukocytosis Code(s): D72.829 - ELEVATED WHITE BLOOD CELL COUNT, UNSPECIFIED (2) Asthma Code(s): J45.909 - UNSPECIFIED ASTHMA, UNCOMPLICATED (3) Atypical chest pain Code(s): R07.89 - OTHER CHEST PAIN Assessment/Plan suspect asthma excerbation from exercise- now subsided no signs infection can d/c antibiotics and observe
[2018-08-29] MEDS: ACETAMINOPHEN 325 MG TABLET (FP) PO SCH (21:29)
[2018-08-29] MEDS ORDERED: ATORVASTATIN CA 80 MG TABLET (FP) PO SCH (22:00)
[2018-08-30] MEDS: HEPARIN NA (PORCINE) 5,000 UNITS/ML 1ML VIAL SQ SCH (05:54)
[2018-08-30] MEDS: SODIUM CHLORIDE 1,000 ML IV SCH (06:47)
[2018-08-30 06:56] VITALS: TEMP 98.4
[2018-08-30 08:01] LABS: CHOLESTEROL 141 mg/dL (50-200); HDL CHOLESTEROL 55 mg/dL (40-60); TRIGLYCERIDES 78 mg/dL (0-150)
[2018-08-30 08:10] LABS: BASO % 0.3 % (0-2.0); EOS % 1.4 % (0-4.5); HEMATOCRIT 30.9 % (32.4-45.2); LYMPH % 30.3 % (8-40); MCH 32.2 pg (25.7-33.7); MCHC 32.4 g/dl (32.0-36.0); MEAN CELL VOLUME 99.4 fl (80-96); MEAN PLT VOLUME 10.8 fl (7.5-11.1); RBC 3.11 M/mm3 (3.60-5.2); RDW 15.4 % (11.6-15.6); WHITE BLOOD COUNT 5.3 K/mm3 (4.0-10.0)
[2018-08-30 08:23] LABS: ALBUMIN 2.7 g/dl (3.4-5.0); ALK PHOS 60 U/L (45-117); ANION GAP 8 MMOL/L (8-16); BILIRUBIN,TOTAL 0.1 mg/dL (0.2-1); BLOOD UREA NITROGEN 22 mg/dL (7-18); CALCIUM 8.1 mg/dL (8.5-10.1); CHLORIDE 114 mmol/L (98-107); CO2 22 mmol/L (21-32); CREATININE 1.3 mg/dL (0.55-1.3); GLUCOSE,RANDOM 86 mg/dL (74-106); MAGNESIUM 2.1 mg/dL (1.8-2.4); POTASSIUM 4.3 mmol/L (3.5-5.1); SGOT/AST 19 U/L (15-37); SGPT/ALT 22 U/L (13-61); SODIUM 144 mmol/L (136-145)
--- NOTE | 2018-08-30 08:35 | DS ---
Physical Exam: SUBJECTIVE: Patient seen and examined OBJECTIVE: Patient may return to her program without any restrictions. Vital Signs Period Temp Pulse Resp BP Sys/Cleary Pulse Ox Last 24 Hr 97.7 F-98.9 F 46-92 18-18 116-146/59-66 96-98 PHYSICAL EXAM GENERAL: The patient is awake, alert, poor historian HEAD: Normal with no signs of trauma. EYES: PERRL, extraocular movements intact, sclera anicteric, conjunctiva clear. No ptosis. ENT: Ears normal, nares patent, oropharynx clear without exudates, moist mucous membranes. NECK: Trachea midline, full range of motion, supple. LUNGS: Breath sounds equal, clear to auscultation bilaterally HEART: Regular rate and rhythm ABDOMEN: Soft, nontender, nondistended, normoactive bowel sounds, no guarding, no rebound, no hepatosplenomegaly, no masses. EXTREMITIES: no edema. NEUROLOGICAL: Normal speech, gait not observed. PSYCH: hx if schizophrenia SKIN: Warm, dry, normal turgor, no rashes or lesions noted LABS Laboratory Results - last 24 hr 08/29/18 08/29/18 08/30/18 07:05 15:43 06:48 WBC 5.3 RBC 3.11 L Hgb 10.0 L Hct 30.9 L MCV 99.4 H MCH 32.2 MCHC 32.4 RDW 15.4 MPV 10.8 Absolute Neuts (auto) 3.1 Neutrophils % 58.0 Lymphocytes % 30.3 D Monocytes % 10.0 Eosinophils % 1.4 D Basophils % 0.3 Nucleated RBC % 0 ESR 101 H Sodium 145 Potassium 4.2 Chloride 114 H Carbon Dioxide 23 Anion Gap 9 BUN 22 H Creatinine 1.4 H Creat Clearance w eGFR 37.98 Random Glucose 67 L Calcium 9.0 Phosphorus 4.4 Magnesium 2.3 Total Bilirubin AST ALT Alkaline Phosphatase Troponin I 0.03 Total Protein Albumin Triglycerides 78 Cholesterol 141 Total LDL Cholesterol 84 HDL Cholesterol 55 TSH 2.15 08/30/18 06:48 WBC RBC Hgb Hct MCV MCH MCHC RDW MPV Absolute Neuts (auto) Neutrophils % Lymphocytes % Monocytes % Eosinophils % Basophils % Nucleated RBC % ESR Sodium 144 Potassium 4.3 Chloride 114 H Carbon Dioxide 22 Anion Gap 8 BUN 22 H Creatinine 1.3 Creat Clearance w eGFR 41.37 Random Glucose 86 Calcium 8.1 L Phosphorus Magnesium 2.1 Total Bilirubin 0.1 L AST 19 ALT 22 Alkaline Phosphatase 60 Troponin I Total Protein 6.0 L Albumin 2.7 L Triglycerides Cholesterol Total LDL Cholesterol HDL Cholesterol TSH HOSPITAL COURSE: Date of Admission:08/28/18 Date of Discharge: 08/30/18 ASSESSMENT/PLAN: Patient is a 62 year old female witha significant past medical history of asthma , CAD s/p CABG, schizophrenia, and hypertension. She present to the ER from [facility] ([place], [place], [facility]) with sharp chest pain, productive cough with green sputum, and vomiting. Card: Chest pain. resolved. no events on tele, troponins negative. denies chest pain on exam and appears comfortable. currently asymptomatic. Seen by cardiology. Patient can follow up outpatient. echo with normal LV EF 60%. CAD: on lipitor Pulm Productive cough, with green sputum. resolved. Elevated d dimer. Reported to have been worked up 1 week ago with a negative CTA. Will doppler lower extremities. No chest pain, not tachycardic, not short of breath. GI: vomiting, resolved. tolerating diet. denies nausea/vomiting. ID: Leukocytosis, resolved. monitor off antibiotics. : UA negative, UC with 60-70 colony count, as per ID no need to treat. patient is asymptomtic. Renal: SANDRA, resolved Minutes to complete discharge: 45 Discharge Summary Reason For Visit: SHORTNESS OF BREATH,PLEURODYNIA,CHEST PAIN Current Active Problems ASHD (arteriosclerotic heart disease) (Acute) Asthma (Acute) Atypical chest pain (Acute) Chest pain (Acute) D-dimer, elevated (Acute) Leukocytosis (Acute) Renal dysfunction (Acute) Schizo affective schizophrenia (Acute) Shortness of breath (Acute) Condition: Stable - Instructions Diet, Activity, Other Instructions: Please continue all your home medications as prescribed. Please return to the ER with any new or worsening symptoms. All your testing for chest pain has been negative. You can see Dr. Flores as an outpatient. Please call his office for an appointment Patient may return to her program without any restrictions. Thank you Terrie Vences NP [facility] [phone] Referrals: Kashmir Villa MD [Staff Physician] - 1 Week ON STAFF,NOT [Primary Care Provider] - Disposition: [facility] - Home Medications Comprehensive Discharge Medication List: Ambulatory Orders Acetaminophen [Tylenol] 325 mg PO QID 08/28/18 Atorvastatin Ca [Lipitor] 80 mg PO DAILY 08/28/18 Citalopram Hydrobromide [Citalopram HBr] 75 mg PO DAILY 08/28/18 Hydrochlorothiazide [Hctz -] 12.5 mg PO DAILY 08/28/18 Hyoscyamine Sulfate 0.125 mg PO TID 08/28/18 Loratadine [Claritin] 10 mg PO DAILY 08/28/18 Vitamin D - 2,000 mg PO DAILY 08/28/18 This patient is new to me today: No Emergency Visit: Yes ED Registration Date: 08/28/18 Care time: The patient presented to the Emergency Department on the above date and was hospitalized for further evaluation of their emergent condition. Critical Care patient: No - Discharge Referral Referred to [facility] Med P.C.: No
[2018-08-30 09:15] LABS: PLATELET COUNT 209 K/MM3 (134-434); PLATELET ESTIMATE ADEQUATE
--- NOTE | 2018-08-30 09:49 | PN ---
Progress Note, Physician History of Present Illness: Pt is a 62yo f with PMH of OHS, asthma, htn, schizophrenia, mental disability, PUD BIBA to ED with Toya dave for evaluation of chest pain, SOB, n/v. According to Marcela Scott, pt went down to the gardens nearby and to the gazebo and pt was feeling fine. On the way back up to the stairs, pt started complaining of substernal CP, non radiating associated with SOB. Pt stated it felt like 'an asthma attack'. Per Aruna, pt started belching and vomiting/ coughing greenish sputum up everytime she took a step up the stairs which was about 12 steps. After pt reached the top she had an episode of bowel incontinence. No blood in the vomitus or stool. Pt admits to chest pain which is sharp in the middle of her chest and does not radiate, worsened with inspiration. She also admits to headache, blurry vision, diffuse abdominal pain , SOB, neck pain, back pain, pain in the legs. Denies fevers, chills. -Per tank shop supervisor, Pt is "dramatic" and will have several complaints; she has had extensive workup in the past which have been negative. She then showed the ER interviewer coffee and creamer pt had hidden in her purse and her closet. - Current Medication List Current Medications: Active Medications Acetaminophen (Tylenol -) 325 mg PO QID [facility] Last Admin: 08/29/18 21:29 Dose: 325 mg Atorvastatin Calcium (Lipitor -) 80 mg PO HS [facility] Last Admin: 08/29/18 21:28 Dose: 80 mg Heparin Sodium (Porcine) (Heparin -) 5,000 unit SQ TID [facility] Last Admin: 08/30/18 05:54 Dose: 5,000 unit Sodium Chloride (Normal Saline -) 1,000 mls @ 75 mls/hr IV ASDIR [facility] Last Admin: 08/30/18 06:47 Dose: 75 mls/hr Loratadine (Claritin -) 10 mg PO DAILY [facility] - Objective Vital Signs: Vital Signs Temperature 98.4 F 08/30/18 06:00 Pulse Rate 61 08/30/18 06:00 Respiratory Rate 18 08/30/18 06:00 Blood Pressure 146/63 08/30/18 06:00 O2 Sat by Pulse Oximetry (%) 98 08/29/18 20:59 Labs: CBC, BMP 08/30/18 06:48 08/30/18 06:48 INR, PTT INR 1.00 (0.83-1.09) 08/29/18 07:05 Assessment/Plan - Problems (1) Atypical chest pain Assessment/Plan: TNI negative x 2. Discomfort was primarily abdominal. Pt says she had a stress MIBI (her third in several years) a few weeks ago at [facility]; it was reportedly negative. She had a coronary angiogram years ago, after the 1st stress MIBI. Denies hx PCI , either angioplasty or coronary artery stent. EKG: sinus michael with sinus arrhythmia; nonspecific STT changes; no arrhythmias or significant pauses on telemetry. ECHO: normal LVEF. It would be helpful to obtain records of recent cardiac workup. Code(s): R07.89 - OTHER CHEST PAIN (2) Schizo affective schizophrenia Code(s): F25.0 - SCHIZOAFFECTIVE DISORDER, BIPOLAR TYPE (3) Shortness of breath Code(s): R06.02 - SHORTNESS OF BREATH (4) Renal dysfunction Assessment/Plan: Hydration; f/u BUN/Cr, Is and Os. Code(s): N28.9 - DISORDER OF KIDNEY AND URETER, UNSPECIFIED (5) Leukocytosis Assessment/Plan: on antibiotics Code(s): D72.829 - ELEVATED WHITE BLOOD CELL COUNT, UNSPECIFIED
[2018-08-30] MEDS ORDERED: CITALOPRAM HYDROBROMIDE 10 MG TABLET (FP) PO SCH (10:00)
[2018-08-30] MEDS ORDERED: LORATADINE 10 MG TABLET PO SCH (10:00)
[2018-08-30] MEDS: ACETAMINOPHEN 325 MG TABLET (FP) PO SCH (10:14)
[2018-08-30 10:27] LABS: OSMOLALITY,SERUM 303 mosm/kg (278-305)
[2018-08-30 11:12] VITALS: BP 131/69; PULSE 55
== END 2018-08-30 14:57 ==
LOC: JER 13:12 → J4W 18:32
PROVIDERS: ADMIT Internal Medicine; ATTEND Nurse Practitioner Family
PROC: 3E03329 Introduction of Other Anti-infective into Peripheral Vein, Percutaneous Approach (ICD-10-PCS; principal; 2018-08-28)
PROC: 3E0337Z Introduction of Electrolytic and Water Balance Substance into Peripheral Vein, Percutaneous Approach (ICD-10-PCS; 2018-08-28)
PROC: 3E013GC Introduction of Other Therapeutic Substance into Subcutaneous Tissue, Percutaneous Approach (ICD-10-PCS; 2018-08-28)
DX: R07.89 Other chest pain (principal); R06.02 Shortness of breath; R07.81 Pleurodynia; N17.9 Acute kidney failure, unspecified; D72.829 Elevated white blood cell count, unspecified; R00.2 Palpitations; R79.89 Other specified abnormal findings of blood chemistry; I10 Essential (primary) hypertension; I25.10 Atherosclerotic heart disease of native coronary artery without angina pectoris; F20.9 Schizophrenia, unspecified; J45.909 Unspecified asthma, uncomplicated; F79 Unspecified intellectual disabilities; E66.9 Obesity, unspecified; Z68.30 Body mass index [BMI] 30.0-30.9, adult; Z95.1 Presence of aortocoronary bypass graft; Z88.0 Allergy status to penicillin; Z88.6 Allergy status to analgesic agent
CPT/HCPCS: 36415; 71045-TC-FY; 74176-TC; 80048; 80053; 80061; 81003; 82550; 82553; 83605; 83690; 83721; 83735; 83930; 84100; 84443; 84484; 85025; 85379; 85610; 85651; 85730; 86618; 87040; 87086; 87186; 87899; 93005; 93010; 93306-TC; 93970-TC; 96361; 96372; 96374; 99284-25; G0378; J1644; J7030; Q0162